=== PATIENT | female | born 1970 | race African-American/Black ===

== ENCOUNTER 2016-07-28 21:54 | Emergency (ER) | payer MEDICAID ==
[2016-07-28] MEDS ORDERED: NO HOME MEDICATION XX (22:24)
[2016-07-28] MEDS ORDERED: NORCO 5/3251 TAB PO (23:13)
[2016-07-28] MEDS ORDERED: CYCLOBENZAPRINE10 M1 PO (23:13)
== END 2016-07-28 23:22 ==
LOC: EDMED 21:54
DX: S16.1XXA Strain of muscle, fascia and tendon at neck level, initial encounter (principal); V49.40XA Driver injured in collision with unspecified motor vehicles in traffic accident, initial encounter; Y92.410 Unspecified street and highway as the place of occurrence of the external cause; M19.90 Unspecified osteoarthritis, unspecified site